=== PATIENT | female | born 2000 | race Caucasian/White ===

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

== ENCOUNTER 2019-06-23 10:36 | Emergency (ER) | payer SELFPAY ==
--- NOTE | 2019-06-23 11:28 | ER Document Report ---
ED Medical Screen (RME) - General Chief Complaint: Abdominal Pain Stated Complaint: ABDOMINAL PAIN Time Seen by Provider: 06/23/19 11:25 Primary Care Provider: [facility] [Provider Group] - Follow up as needed PATRICK VILLANUEVA MD [ACTIVE STAFF] - Follow up as needed Mode of Arrival: Ambulatory Information source: Patient Notes: 18-year-old female presented to ED for complaint of abdominal cramping. She states her last menstrual cycle was May 24May 29. States she had a home test that was positive and she would like to be checked out. She is alert oriented respirations regular nonlabored speaking in full sentences. He denies any nausea or vomiting. I have greeted and performed a rapid initial assessment of this patient. A comprehensive ED assessment and evaluation of the patient, analysis of test results and completion of medical decision making process will be conducted by an additional ED providers. TRAVEL OUTSIDE OF THE [place] IN LAST 30 DAYS: No - HPI Onset: Just prior to arrival Onset/Duration: Intermittent Quality of pain: Cramping Severity: None Pain Level: Denies Associated Symptoms: None Exacerbated by: Denies Relieved by: Denies Similar symptoms previously: No Recently seen / treated by doctor: No - Related Data Smoking: Quit greater than 1 year Frequency of alcohol use: None Drug Abuse: None Allergies/Adverse Reactions: Penicillins Allergy (Verified 06/23/19 11:25) Past Medical History - General Information source: Patient - Social History Cigarette use (# per day): No Chew tobacco use (# tins/day): No Frequency of alcohol use: None Drug Abuse: None Family history: Reviewed & Not Pertinent - Past Medical History Cardiac Medical History: Reports: None Pulmonary Medical History: Reports: None EENT Medical History: Reports: None Neurological Medical History: Reports: None Endocrine Medical History: Reports: None Renal/ Medical History: Reports: Hx Ovarian Cysts, Hx Pelvic Inflammatory Disease Malignancy Medical History: Reports: None GI Medical History: Reports: None Musculoskeltal Medical History: Reports None Skin Medical History: Reports None Psychiatric Medical History: Reports: Hx Anxiety, Hx Depression Traumatic Medical History: Reports: None Infectious Medical History: Reports: None Past Surgical History: Reports: Hx Adenoidectomy, Hx Tonsillectomy - adenoids - Immunizations Immunizations up to date: Yes Hx Diphtheria, Pertussis, Tetanus Vaccination: Yes - 03/25/2018 Review of Systems - Review of Systems Constitutional: No symptoms reported EENT: No symptoms reported Cardiovascular: No symptoms reported Respiratory: No symptoms reported Gastrointestinal: No symptoms reported Genitourinary: No symptoms reported Female Genitourinary: No symptoms reported Musculoskeletal: No symptoms reported Skin: No symptoms reported Hematologic/Lymphatic: No symptoms reported Neurological/Psychological: No symptoms reported -: Yes All other systems reviewed and negative Physical Exam - Vital signs Vitals: Temp Pulse Resp BP Pulse Ox 98.2 F 94 H 18 129/81 H 100 06/23/19 11:10 06/23/19 11:10 06/23/19 11:10 06/23/19 11:10 06/23/19 11:10 Interpretation: Normal - General General appearance: Appears well, Alert - HEENT Head: Normocephalic, Atraumatic Eyes: Normal Pupils: PERRL - Respiratory Respiratory status: No respiratory distress Chest status: Nontender Breath sounds: Normal Chest palpation: Normal - Cardiovascular Rhythm: Regular Heart sounds: Normal auscultation Murmur: No - Abdominal Inspection: Normal Distension: No distension Bowel sounds: Normal Tenderness: Nontender Organomegaly: No organomegaly - Back Back: Normal, Nontender - Extremities General upper extremity: Normal inspection, Nontender, Normal color, Normal ROM, Normal temperature General lower extremity: Normal inspection, Nontender, Normal color, Normal ROM, Normal temperature, Normal weight bearing. No: Rashel's sign - Neurological Neuro grossly intact: Yes Cognition: Normal Orientation: AAOx4 Nj Coma Scale Eye Opening: Spontaneous Nj Coma Scale Verbal: Oriented [place] Coma Scale Motor: Obeys Commands Wick[place]fe Coma Scale Total: 15 Speech: Normal Motor strength normal: LUE, RUE, LLE, RLE Sensory: Normal - Psychological Associated symptoms: Normal affect, Normal mood - Skin Skin Temperature: Warm Skin Moisture: Dry Skin Color: Normal Course - Vital Signs Vital signs: Temp Pulse Resp BP Pulse Ox 98.1 F 95 H 14 127/87 H 100 06/23/19 13:25 06/23/19 13:25 06/23/19 13:25 06/23/19 13:25 06/23/19 13:25 - Laboratory Laboratory results interpreted by me: 06/23/19 11:50 Beta HCG, Quant 228.95 H Doctor's Discharge - Discharge Clinical Impression: Qualifiers: Weeks of gestation: less than 8 weeks Qualified Code(s): Z3A.01 - Less than 8 weeks gestation of Condition: Stable Disposition: HOME, SELF-CARE Instructions: [facility] Additional Instructions: You are . care is best started as early in as possible. If you're unsure about continuing this , you should discuss this with your physician or with wares sorter at [facility]. You should take only medications approved by your physician. Acetaminophen can safely be taken for minor pains. As a rule, medication for chronic conditions such as asthma or seizures can safely be continued. You should discuss with the physician every medicine you take. Any regular exercise program can be continued. Talk to your physician, however, before engaging in competitive or demanding sports. Alcohol, smoking, and "street drugs" are dangerous to your baby. Cocaine is especially dangerous. Don't use any illicit drugs! Acetaminophen Acetaminophen may be taken for pain relief or fever control. It's much safer than aspirin, offering a wider range of "safe" dosages. It is safe during . Some brand names are Tylenol, Panadol, Datril, Anacin 3, Tempra, and Liquiprin. Acetaminophen can be repeated every four hours. The following are maximum recommended dosages: WEIGHT Dose Drops Elixir Chewab le(80mg) (LBS.) drprs=droppers tsp=teaspoon 6 40 mg .4 ml (1/2) 6-11 80 mg .8 ml (full) 1/2 tsp 1 tab 12-16 120 mg 1 1/2 drprs 3/4 tsp 1 1/2 tabs 17-23 160 mg 2 drprs 1 tsp 2 tabs 24-30 240 mg 3 drprs 1 1/2 tsp 3 tabs 30-35 320 mg 2 tsp 4 tabs 36-41 360 mg 2 1/4 tsp 4 1/2 tabs 42-47 400 mg 2 1/2 tsp 5 tabs 48-53 480 mg 3 tsp 6 tabs 54-59 520 mg 3 1/4 tsp 6 1/2 tabs 60-64 560 mg 3 1/2 tsp 7 tabs 65-70 600 mg 3 3/4 tsp 7 1/2 tabs 71-76 640 mg 4 tsp 8 tabs 77-82 720 mg 4 1/2 tsp 9 tabs 83-88 800 mg 5 tsp 10 tabs >89 pounds or adults 650 mg to 900 mg Acetaminophen can be repeated every four hours. Maximum daily dose not to exceed 4000 mg. These maximum recommended dosages are slightly higher than the dosages written on the product container, but these dosages are very safe and well below the toxic dosage for acetaminophen. FOLLOW-UP CARE: If you have been referred to a physician for follow-up care, call the physicians office for an appointment as you were instructed or within the next two days. If you experience worsening or a significant change in your symptoms, notify the physician immediately or return to the Emergency Department at any time for re-evaluation. Referrals: PATRICK VILLANUEVA MD [ACTIVE STAFF] - Follow up as needed [facility] [Provider Group] - Follow up as needed
[2019-06-23 13:32] VITALS: BP 127/87
== END 2019-06-23 13:25 | disposition home or self-care (01) ==
LOC: ER 10:36
DX: O26.891 Other specified pregnancy related conditions, first trimester (principal); R10.9 Unspecified abdominal pain; Z3A.01 Less than 8 weeks gestation of pregnancy
CPT/HCPCS: 36415; 84702; 99284

== ENCOUNTER → 2019-07-15 | Outpatient (CLI) | payer MEDICAID ==
--- NOTE | 2019-07-15 15:16 | RADIOLOGY REPORT (SQ) ---
EXAM DESCRIPTION: U/S [id number] TRNABD 1GES W/ODOP COMPLETED DATE/TIME: 07/15/2019 2:45 pm REASON FOR STUDY: ENCTR FOR SUPERVISION OF NORMAL FIRST , 1ST TRIMESTER (Z34.01) Z34.01 EN CNTR FOR SUPRVSN OF NORMAL FIRST PREG, FIRST TRIMES COMPARISON: None. TECHNIQUE: Transabdominal static and realtime grayscale images acquired of the pelvis. Additional se lected spectral and color Doppler images recorded. All images stored on PACs. bHCG: Unknown. CLINICAL DATES: 7 weeks 4 days. LIMITATIONS: None. FINDINGS: FETUS: Single Living intrauterine . ULTRASOUND EGA: 6 weeks 5 days. ULTRASOUND TOMASZ: 03/04/2020 EFW: Not applicable less than 20 weeks. CRL: Visualized. FHR: 153 beats per minute. SURVEY: Too early to assess. AMNIOTIC FLUID: Too early to assess. PLACENTA: Not yet developed due to early gestation. SUBCHORIONIC BLEED: No. SIZE OF BLEED: Not applicable. UTERUS: No masses. No anomalies. CERVICAL LENGTH: 2.2 cm. Closed. RIGHT ADNEXA: Normal ovary with normal vascular flow. No adnexal free fluid. No adnexal masses. LEFT ADNEXA: Normal ovary with normal vascular flow. No adnexal free fluid. No adnexal masses. FREE FLUID: None. OTHER: No other significant finding. IMPRESSION: LIVING INTRAUTERINE . EGA 6 WEEKS 5 DAYS. Trimester of : First trimester - 0 to 13 weeks. TECHNICAL DOCUMENTATION: JOB ID: [id number] 2010 [employer]- All Rights Reserved rev Reading location - IP/workstation name: [email or web address]
== END ==
LOC: RAD 13:43
PROVIDERS: ATTEND Nurse Practitioner Family
DX: Z34.01 Encounter for supervision of normal first pregnancy, first trimester (principal)
CPT/HCPCS: 76801

== ENCOUNTER 2019-07-18 00:35 | Emergency (ER) | payer MEDICAID ==
[2019-07-18] MEDS ORDERED: DEXTROSE 5%-LACTATED RINGERS 1,000 ML IV ONE ×2 (02:10→03:58)
[2019-07-18] MEDS ORDERED: METOCLOPRAMIDE HCL INJ/PF 10 MG/2 ML SDV IV ONE (02:11)
[2019-07-18 02:12] LABS: ABSOLUTE LYMPHOCYTES (AUTO) 3.4 10^3/uL (0.5-4.7); ABSOLUTE MONOCYTES (AUTO) 0.8 10^3/uL (0.1-1.4); ABSOLUTE NEUT (AUTO) 10.2 10^3/uL (1.7-8.2); BASOPHILS % (AUTO) 0.3 % (0-2); EOSINOPHILS % (AUTO) 0.1 % (0-6); HEMATOCRIT 38.9 % (36.0-47.0); HEMOGLOBIN 13.5 g/dL (12.0-15.5); LYMPHOCYTES % (AUTO) 23.5 % (13-45); MEAN CORPUSCULAR HEMOGLOBIN 31.2 pg (27.0-33.4); MEAN CORPUSCULAR HGB CONC 34.6 g/dL (32.0-36.0); MEAN CORPUSCULAR VOLUME 90 fl (80-97); MONOCYTES % (AUTO) 5.3 % (3-13); PLATELET COUNT 234 10^3/uL (150-450); RED BLOOD COUNT 4.32 10^6/uL (3.72-5.28); RED CELL DISTRIBUTION WIDTH 13.5 % (11.5-14.0); SEGMENTED NEUTROPHILS % (AUTO) 70.8 % (42-78); TOTAL CELLS COUNTED % (AUTO) 100 %; WHITE BLOOD COUNT 14.5 10^3/uL (4.0-10.5)
--- NOTE | 2019-07-18 02:31 | ER Document Report ---
ED General - General Chief Complaint: OB Problem (<20wks) Stated Complaint: VOMITING,NAUSEA Time Seen by Provider: 07/18/19 01:57 Primary Care Provider: HARINDER MCGOWAN ARNP [Primary Care Provider] - Follow up as needed TRAVEL OUTSIDE OF THE [place] IN LAST 30 DAYS: No - HPI Notes: 18-year-old primigravida at 7 weeks EGA experiencing problems with vomiting and difficulty keeping fluids down. No fever or chills. No dysuria. No back pain. Patient was given pyridoxine and Zofran by OB clinic and neither have worked well for her. Patient is otherwise in good general health. No regular medications. History of allergy to penicillin. - Related Data Allergies/Adverse Reactions: Penicillins Allergy (Verified 06/23/19 11:25) Home Medications: zofran, magnesium, Past Medical History - General Information source: Patient - Social History Smoking Status: Never Smoker Family History: Reviewed & Not Pertinent Patient has suicidal ideation: No Patient has homicidal ideation: No Renal/ Medical History: Reports: Hx Ovarian Cysts, Hx Pelvic Inflammatory Disease. Denies: Hx Peritoneal Dialysis Psychiatric Medical History: Reports: Hx Anxiety, Hx Depression Past Surgical History: Reports: Hx Adenoidectomy, Hx Tonsillectomy - adenoids - Immunizations Immunizations up to date: Yes Hx Diphtheria, Pertussis, Tetanus Vaccination: Yes - 03/25/2018 Review of Systems - Review of Systems Notes: Constitutional: Negative for fever. HENT: Negative for sore throat. Eyes: Negative for visual changes. Cardiovascular: Negative for chest pain. Respiratory: Negative for shortness of breath. Gastrointestinal: As per HPI. Genitourinary: Negative for dysuria. Musculoskeletal: Negative for back pain. Skin: Negative for rash. Neurological: Negative for headaches, weakness or numbness. 10 point ROS negative except as marked above and in HPI. Physical Exam - Vital signs Vitals: Temp Pulse Resp BP Pulse Ox 98.0 F 112 H 18 131/73 H 100 07/18/19 00:39 07/18/19 00:39 07/18/19 00:39 07/18/19 00:39 07/18/19 00:39 - Notes Notes: GENERAL: Slender female appearing approximately stated age in no acute distress. SKIN: Good turgor. Grade 2 facial acne. HEAD: Normocephalic atraumatic. EYES: PERRLA. EOMI. Conjunctivae and sclerae clear. EARS: CANALS AND TMS CLEAR. NOSE: CLEAR. MOUTH: Moist mucosa. Good dentition. No stridor or edema. No drooling. NECK: Supple. No masses or thyromegaly. No adenopathy. Carotids 2+ without bruits. No JVD. BACK: Symmetrical without tenderness. CHEST: Respirations unlabored. Breath sounds clear and symmetrical. HEART: Regular rhythm. No murmur gallop or rub. ABDOMEN: Mild suprapubic tenderness. Soft without masses, organomegaly or re bound. Bowel sounds normally active. No bruits. GENITALIA: Deferred. EXTREMITIES: No edema. No calf tenderness. Cap refill less than 1.5 seconds. Dorsalis pedis and posterior tibial pulses 3+ and symmetrical. NEUROLOGICAL: GCS 15. Alert and oriented x3. Normal gait. Fluent speech. Cranial nerves II through XII intact. Sensorimotor and cerebellar normal. Normal tone. PSYCHIATRIC: Appropriate affect. Course - Re-evaluation Re-evalutation: 07/18/19 02:15 Prior records reviewed showing ultrasound 3 days ago here which demonstrated IUP. Based on this study she would currently be at 7 weeks EGA. Routine labs are requested. I have initiated infusion of 1 L of D5LR and administration of Reglan IV. 07/18/19 05:09 Patient had large ketones in her urine. We are giving her second bag of D5 LR. She is tolerating p.o. fluids now appears stable for discharge with a prescription for Reglan follow-up with her OB. - Vital Signs Vital signs: Temp Pulse Resp BP Pulse Ox 98.0 F 112 H 18 131/73 H 100 07/18/19 00:39 07/18/19 00:39 07/18/19 00:39 07/18/19 00:39 07/18/19 00:39 - Laboratory Result Diagrams: 07/18/19 02:01 07/18/19 02:01 Discharge - Discharge Clinical Impression: Hyperemesis of Condition: Stable Disposition: HOME, SELF-CARE Prescriptions: Metoclopramide HCl [Reglan 10 mg Tablet] 1 tab PO ASDIR PRN #25 tablet PRN Reason: Referrals: HARINDER MCGOWAN ARNP [Primary Care Provider] - Follow up as needed
[2019-07-18 02:32] LABS: ALBUMIN 4.3 g/dL (3.7-5.6); ALKALINE PHOSPHATASE 59 U/L (50-135); ANION GAP 12 (5-19); ASPARTATE AMINO TRANSFERASE 20 U/L (5-30); BILIRUBIN,TOTAL 0.4 mg/dL (0.2-1.3); BLOOD UREA NITROGEN 9 mg/dL (7-20); CALCIUM 9.8 mg/dL (8.4-10.2); CARBON DIOXIDE 23 mmol/L (22-30); CHLORIDE 102 mmol/L (98-107); GLUCOSE 77 mg/dL (75-110); POTASSIUM 3.6 mmol/L (3.6-5.0)
[2019-07-18 02:36] LABS: APPEARANCE,URINE SLIGHTLY-CLOUDY; BILIRUBIN,URINE NEGATIVE (NEGATIVE); COLOR,URINE YELLOW; GLUCOSE, URINE NEGATIVE (NEGATIVE); KETONES,URINE 20 mg/dL (NEGATIVE); LEUKOCYTE ESTERASE,URINE NEGATIVE (NEGATIVE); NITRITE,URINE NEGATIVE (NEGATIVE); PROTEIN,URINE 30 mg/dL (NEGATIVE); URINE SPECIFIC GRAVITY 1.023; UROBILINOGEN,URINE NEGATIVE mg/dL (<2.0)
[2019-07-18 05:47] VITALS: BP 123/74
== END 2019-07-18 05:46 | disposition home or self-care (01) ==
LOC: ER 00:35
DX: O21.0 Mild hyperemesis gravidarum (principal); O26.891 Other specified pregnancy related conditions, first trimester; R82.4 Acetonuria; O99.711 Diseases of the skin and subcutaneous tissue complicating pregnancy, first trimester; L70.9 Acne, unspecified; Z88.0 Allergy status to penicillin; Z3A.01 Less than 8 weeks gestation of pregnancy
CPT/HCPCS: 99283; 96361; 96374; 36415; 84702; 83690; 85025; 80053; 81001; J2765; J7121

== ENCOUNTER 2019-08-07 21:17 | Emergency (ER) | payer MEDICAID ==
[2019-08-07] MEDS ORDERED: METOCLOPRAMIDE HCL INJ/PF 10 MG/2 ML SDV IV ONE (22:05)
[2019-08-07] MEDS ORDERED: NORMAL SALINE 1000 ML 1,000 ML IV ONE (22:05)
--- NOTE | 2019-08-07 22:07 | ER Document Report ---
ED Medical Screen (RME) - General Chief Complaint: Nausea/Vomiting Stated Complaint: POSSIBLY THROWING UP BLOOD/ Primary Care Provider: HARINDER MCGOWAN ARNP [Primary Care Provider] - Follow up as needed Notes: Patient is a 18-year-old female who is G1, P0, first trimester who presents for uncontrollable nausea and vomiting that began earlier this morning. She was seen here recently for hyperemesis gravidarum and sent home on Reglan. She states it was controlling her symptoms but today she cannot keep the medicine down. She states she is vomited approximately 8 times. Has no lower abdominal pain or vaginal bleeding. Was recently set up with an OB. I have treated and performed a rapid initial assessment of this patient. A comprehensive ED assessment and evaluation of the patient, analysis of test results and completion of medical decision making process will be conducted by additional ED providers. PHYSICAL EXAMINATION: GENERAL: Well-appearing, well-nourished and in no acute distress. A&Ox4. Answers questions appropriately. TRAVEL OUTSIDE OF THE [place] IN LAST 30 DAYS: No - Related Data Allergies/Adverse Reactions: Penicillins Allergy (Verified 08/07/19 21:54) Past Medical History - Social History Frequency of alcohol use: None Drug Abuse: None Family history: Reviewed & Not Pertinent Neurological Medical History: Reports: Hx Seizures Renal/ Medical History: Reports: Hx Ovarian Cysts, Hx Pelvic Inflammatory Disease. Denies: Hx Peritoneal Dialysis Psychiatric Medical History: Reports: Hx Anxiety, Hx Depression Past Surgical History: Reports: Hx Adenoidectomy, Hx Oral Surgery, Hx Tonsillectomy - adenoids - Immunizations Immunizations up to date: Yes Hx Diphtheria, Pertussis, Tetanus Vaccination: Yes - 03/25/2018 Physical Exam - Vital signs Vitals: Temp Pulse Resp BP Pulse Ox 97.3 F 89 20 120/68 100 08/07/19 21:22 08/07/19 21:22 08/07/19 21:22 08/07/19 21:22 08/07/19 21:22 Course - Vital Signs Vital signs: Temp Pulse Resp BP Pulse Ox 97.3 F 89 20 120/68 100 08/07/19 21:22 08/07/19 21:22 08/07/19 21:22 08/07/19 21:22 08/07/19 21:22 Doctor's Discharge - Discharge Referrals: HARINDER MCGOWAN ARNP [Primary Care Provider] - Follow up as needed
--- NOTE | 2019-08-07 23:49 | ER Document Report ---
ED General - General Chief Complaint: Nausea/Vomiting Stated Complaint: POSSIBLY THROWING UP BLOOD/ Time Seen by Provider: 08/07/19 23:46 Primary Care Provider: HARINDER MCGOWAN ARNP [NO LOCAL MD] - Follow up as needed Mode of Arrival: Ambulatory Information source: Patient, [facility] Records Notes: Patient is a 18-year-old female 1 para 0 A0 approximately 11 weeks presenting to the emergency department chief complaint of intractable nausea and vomiting. Patient denies sick exposures or any bad food exposure. Patient states she has been seen for same in the past. Patient reports multiple episodes of vomiting today most recently with a little bit of streaking of blood. TRAVEL OUTSIDE OF THE [place] IN LAST 30 DAYS: No - HPI Onset: Last week Onset/Duration: Intermittent, Worse Quality of pain: Achy Severity: Mild Pain Level: 1 Associated symptoms: Nausea, Vomiting Exacerbated by: Denies Relieved by: Denies Similar symptoms previously: Yes Recently seen / treated by doctor: No - Related Data Allergies/Adverse Reactions: Penicillins Allergy (Verified 08/07/19 21:54) Past Medical History - General Information source: Patient, [facility] Records - Social History Smoking Status: Former Smoker Cigarette use (# per day): No Chew tobacco use (# tins/day): No Smoking Education Provided: No Frequency of alcohol use: None Drug Abuse: None Lives with: Alone Family History: Reviewed & Not Pertinent Patient has suicidal ideation: No Patient has homicidal ideation: No Neurological Medical History: Reports: Hx Seizures Renal/ Medical History: Reports: Hx Ovarian Cysts, Hx Pelvic Inflammatory Disease. Denies: Hx Peritoneal Dialysis Psychiatric Medical History: Reports: Hx Anxiety, Hx Depression Past Surgical History: Reports: Hx Adenoidectomy, Hx Oral Surgery, Hx Tonsillectomy - adenoids - Immunizations Immunizations up to date: Yes Hx Diphtheria, Pertussis, Tetanus Vaccination: Yes - 03/25/2018 Review of Systems - Review of Systems Notes: REVIEW OF SYSTEMS: CONSTITUTIONAL : Denies fever, chills, or sweats. Denies recent illness. EENT: Denies eye, ear, throat, or mouth pain or symptoms. Denies nasal or sinus congestion. CARDIOVASCULAR: Denies chest pain. RESPIRATORY: Denies cough, cold, or chest congestion. Denies shortness of breath, difficulty breathing, or wheezing. GASTROINTESTINAL: Per HPI GENITOURINARY: Denies difficulty urinating, painful urination, burning, frequency, or blood in urine. MUSCULOSKELETAL: Denies neck or back pain or joint pain or swelling. SKIN: Denies rash or skin lesions. HEMATOLOGIC : Denies easy bruising or bleeding. NEUROLOGICAL: Denies altered mental status or loss of consciousness. Denies headache. Denies weakness or paralysis or loss of use of either side. Denies problems with gait or speech. Denies sensory or motor loss. PSYCHIATRIC: Denies suicidal or homicidal ideations 10 Systems are negative unless otherwise specified above Physical Exam - Vital signs Vitals: Temp Pulse Resp BP Pulse Ox 97.3 F 89 20 120/68 100 08/07/19 21:22 08/07/19 21:22 08/07/19 21:22 08/07/19 21:22 08/07/19 21:22 - Notes Notes: PHYSICAL EXAMINATION: GENERAL: Well-appearing, well-nourished and in no acute distress. HEAD: Atraumatic, normocephalic. EYES: Pupils equal round and reactive to light, extraocular movements intact, sclera anicteric, conjunctiva are normal. ENT: nares patent, oropharynx clear without exudates. Moist mucous membranes. NECK: Normal range of motion, supple without lymphadenopathy, no appreciable JVD LUNGS: Lungs clear to auscultation bilaterally and equal. No wheezes rales or rhonchi. HEART: Regular rate and rhythm without murmurs ABDOMEN: Soft, nontender, normal bowel sounds. No guarding, no rebound. No masses appreciated. I was unable to palpate the uterine fundus EXTREMITIES: Active full range of motion, no pitting or edema. No cyanosis. 2+ pulses x4 NEUROLOGICAL: No focal neurological deficits. Moves all extremities spontaneously and on command. SKIN: Warm, Dry, and intact. Normal turgor, no rashes or lesions noted. Course - Re-evaluation Re-evalutation: 08/08/19 02:25 On reevaluation the patient is resting comfortably in hospital bed. I discussed the laboratory and radiologic results with the patient there is no significant abnormal findings. Patient is agreeable with discharge home states that she will follow-up with her FINANCIAL SYSTEMS MANAGER provider in 2 weeks as scheduled. Patient is stable at time of discharge. - Vital Signs Vital signs: Temp Pulse Resp BP Pulse Ox 97.3 F 89 20 120/68 100 08/07/19 21:22 08/07/19 21:22 08/07/19 21:22 08/07/19 21:22 08/07/19 21:22 - Laboratory Result Diagrams: 08/07/19 23:54 08/07/19 23:54 Laboratory results interpreted by me: 08/07/19 08/07/19 08/07/19 23:54 23:54 23:54 WBC 16.2 H Hct 35.6 L Absolute Neuts (auto) 13.4 H Seg Neutrophils % 82.6 H Creatinine 0.34 L Beta HCG, Quant 62018.00 H Urine Protein 30 H Urine Ketones 80 H - Diagnostic Test Radiology reviewed: Reports reviewed Discharge - Discharge Clinical Impression: Hyperemesis gravidarum Condition: Stable Disposition: HOME, SELF-CARE Instructions: Vomiting ([facility]) Additional Instructions: Recommend resting drinking plenty of clear fluids over the next couple of days. Follow-up with your FINANCIAL SYSTEMS MANAGER as necessary. Return to the emergency department for worsening symptoms. Ultrasound demonstrates a single living intrauterine 10 weeks 6 days heart rate 168 bpm. Forms: Return to Work Referrals: HARINDER MCGOWAN ARNP [NO LOCAL MD] - Follow up as needed
[2019-08-08] MEDS ORDERED: ACETAMINOPHEN 325 MG TABLET PO ONE (00:19)
[2019-08-08 00:28] LABS: ABSOLUTE LYMPHOCYTES (AUTO) 2.2 10^3/uL (0.5-4.7); ABSOLUTE MONOCYTES (AUTO) 0.6 10^3/uL (0.1-1.4); ABSOLUTE NEUT (AUTO) 13.4 10^3/uL (1.7-8.2); BASOPHILS % (AUTO) 0.2 % (0-2); EOSINOPHILS % (AUTO) 0.1 % (0-6); HEMATOCRIT 35.6 % (36.0-47.0); HEMOGLOBIN 12.1 g/dL (12.0-15.5); LYMPHOCYTES % (AUTO) 13.5 % (13-45); MEAN CORPUSCULAR HEMOGLOBIN 30.7 pg (27.0-33.4); MEAN CORPUSCULAR VOLUME 90 fl (80-97); MONOCYTES % (AUTO) 3.6 % (3-13); PLATELET COUNT 231 10^3/uL (150-450); RED BLOOD COUNT 3.95 10^6/uL (3.72-5.28); SEGMENTED NEUTROPHILS % (AUTO) 82.6 % (42-78); TOTAL CELLS COUNTED % (AUTO) 100 %; WHITE BLOOD COUNT 16.2 10^3/uL (4.0-10.5)
[2019-08-08 00:30] LABS: APPEARANCE,URINE CLOUDY; BILIRUBIN,URINE NEGATIVE (NEGATIVE); COLOR,URINE YELLOW; GLUCOSE, URINE NEGATIVE (NEGATIVE); KETONES,URINE 80 mg/dL (NEGATIVE); LEUKOCYTE ESTERASE,URINE NEGATIVE (NEGATIVE); NITRITE,URINE NEGATIVE (NEGATIVE); PROTEIN,URINE 30 mg/dL (NEGATIVE); URINE SPECIFIC GRAVITY 1.019; UROBILINOGEN,URINE NEGATIVE mg/dL (<2.0)
[2019-08-08 00:53] LABS: ALBUMIN 4.4 g/dL (3.7-5.6); ALKALINE PHOSPHATASE 58 U/L (50-135); ANION GAP 11 (5-19); ASPARTATE AMINO TRANSFERASE 24 U/L (5-30); BILIRUBIN,TOTAL 0.4 mg/dL (0.2-1.3); BLOOD UREA NITROGEN 7 mg/dL (7-20); CALCIUM 9.8 mg/dL (8.4-10.2); CARBON DIOXIDE 22 mmol/L (22-30); CHLORIDE 105 mmol/L (98-107); GLUCOSE 78 mg/dL (75-110); TOTAL PROTEIN 7.1 g/dL (6.3-8.2)
--- NOTE | 2019-08-08 02:02 | RADIOLOGY REPORT (SQ) ---
EXAM DESCRIPTION: US LESS THAN 14 WEEKS COMPLETED DATE/TME: 08/07/2019 23:48 CLINICAL HISTORY: 18 years, Female, Hyperemesis gravidarum COMPARISON: 07/15/2019 TECHNIQUE: Transabdominal grayscale and Doppler sonogram of the pelvis LIMITATIONS: None. FINDINGS: Uterus: Anteverted. Measures 8.6 x 7.5 x 7.7 cm. Endometrium: Intrauterine gestational sac. Gestational sac: Shape is oval. Fetus: CRL measures 4.0 cm. Heart rate: 168 bpm. Other: Subchorionic hematoma: None. Amniotic fluid: Subjectively within normal limits. Maternal ovaries: Right: Not uniquely identified. Left: Not uniquely identified. Clinical: LMP: 05/24/2019. MA: 10 weeks six days. TOMASZ: 02/28/2020. Ultrasound: MA: 10 weeks six days. TOMASZ: 02/28/2020. IMPRESSION: Single live intrauterine , as described above. copyright 2010 [employer]- All Rights Reserved
[2019-08-08 02:31] VITALS: BP 121/67
== END 2019-08-08 02:31 | disposition home or self-care (01) ==
LOC: ER 21:17
DX: O21.0 Mild hyperemesis gravidarum (principal); Z3A.11 11 weeks gestation of pregnancy; Z87.891 Personal history of nicotine dependence
CPT/HCPCS: 99284; 96361; 96374; 36415; 84702; 83690; 85025; 80053; 81001; 76801; 93976; J3490; J2765; J7030

== ENCOUNTER 2019-08-08 19:06 | Emergency (ER) | payer MEDICAID ==
--- NOTE | 2019-08-08 19:26 | ER Document Report ---
ED Medical Screen (RME) - General Stated Complaint: VAGINAL DISCOMFORT AND PAIN Time Seen by Provider: 08/08/19 19:24 Primary Care Provider: PATRICK VILLANUEVA MD [Primary Care Provider] - Follow up as needed TRAVEL OUTSIDE OF THE [place] IN LAST 30 DAYS: No - HPI Onset: Just prior to arrival Onset/Duration: Gradual - This is a 18-year-old female presents to the emergency room today stating that she has a bump on her vaginal area which is increased in severity over the last week to the point where now she cannot walk and she passed out earlier today from the pain., Persistent Quality of pain: No pain Severity: Moderate Associated Symptoms: None Exacerbated by: Denies Relieved by: Denies - Related Data Allergies/Adverse Reactions: Penicillins Allergy (Verified 08/07/19 21:54) Past Medical History - General Information source: Patient - Social History Cigarette use (# per day): No Chew tobacco use (# tins/day): No Frequency of alcohol use: None Drug Abuse: None Lives with: Family Family history: Reviewed & Not Pertinent Neurological Medical History: Reports: Hx Seizures Renal/ Medical History: Reports: Hx Ovarian Cysts, Hx Pelvic Inflammatory Disease. Denies: Hx Peritoneal Dialysis Psychiatric Medical History: Reports: Hx Anxiety, Hx Depression Past Surgical History: Reports: Hx Adenoidectomy, Hx Oral Surgery, Hx Tonsillectomy - adenoids - Immunizations Immunizations up to date: Yes Hx Diphtheria, Pertussis, Tetanus Vaccination: Yes - 03/25/2018 Review of Systems - Review of Systems Constitutional: No symptoms reported EENT: No symptoms reported Physical Exam - General General appearance: Appears well, Alert Doctor's Discharge - Discharge Referrals: PATRICK VILLANUEVA MD [Primary Care Provider] - Follow up as needed
[2019-08-08] MEDS ORDERED: LIDOCAINE 1%/EPINEPHRINE INJ 20 ML VIAL INJ ONE (22:29)
[2019-08-08] MEDS ORDERED: ACETAMINOPHEN 325 MG TABLET PO ONE (22:49)
[2019-08-08] MEDS ORDERED: CLINDAMYCIN HCL 150 MG CAPSULE PO ONE (22:49)
--- NOTE | 2019-08-08 22:53 | ER Document Report ---
ED Skin Rash/Insect Bite/Abscs - General Chief Complaint: Abscess Stated Complaint: VAGINAL DISCOMFORT AND PAIN Time Seen by Provider: 08/08/19 19:24 Primary Care Provider: [facility] [Provider Group] - Follow up in 3-5 days Notes: She is a 18-year-old female who presents emergency department with a chief complaint of a possible abscess to her left labia majora. Patient states that she has had it there for the past few days. She denies any fever, body aches or chills. Patient was seen yesterday, but decided not to have the abscess drained. Patient does have a history of MRSA. Patient states that she is 11 weeks . She attempted to place heat packs to her inner thigh and ended up sustaining a superficial burn to her left inner thigh. Patient admits to shaving her genital area. TRAVEL OUTSIDE OF THE [place] IN LAST 30 DAYS: No - Related Data Allergies/Adverse Reactions: Penicillins Allergy (Verified 08/07/19 21:54) Home Medications: reglan Past Medical History - General Information source: Patient - Social History Smoking Status: Former Smoker Cigarette use (# per day): No Chew tobacco use (# tins/day): No Frequency of alcohol use: None Drug Abuse: None Lives with: Family Family History: Reviewed & Not Pertinent Patient has suicidal ideation: No Patient has homicidal ideation: No Neurological Medical History: Reports: Hx Seizures Renal/ Medical History: Reports: Hx Ovarian Cysts, Hx Pelvic Inflammatory Disease. Denies: Hx Peritoneal Dialysis Psychiatric Medical History: Reports: Hx Anxiety, Hx Depression Past Surgical History: Reports: Hx Adenoidectomy, Hx Oral Surgery, Hx Tonsillectomy - adenoids - Immunizations Immunizations up to date: Yes Hx Diphtheria, Pertussis, Tetanus Vaccination: Yes - 03/25/2018 Review of Systems - Review of Systems Notes: REVIEW OF SYSTEMS: CONSTITUTIONAL : Denies recent illness. Denies recent unintentional weight loss. Denies fever, chills, or sweats. EENT: Denies eye, ear, throat, or mouth pain, discharge, or symptoms. Denies nasal or sinus congestion. CARDIOVASCULAR: Denies chest pain. RESPIRATORY: Denies shortness of breath, cough, congestion, difficulty breathing, or wheezing. GASTROINTESTINAL: Denies nausea, vomiting, and diarrhea. Denies abdominal pain. Denies constipation. GENITOURINARY: Denies difficulty urinating, burning, blood in urine, urgency or frequency. MUSCULOSKELETAL: Denies neck and back pain. Denies joint pain or swelling. SKIN/GENITALIA: Denies rash, itchiness. See HPI. HEMATOLOGIC : Denies easy bruising or bleeding. LYMPHATIC: Denies swollen, painful, enlarged glands. NEUROLOGICAL: Denies no numbness or tingling denies weakness. Denies headache. Denies altered mental status. Denies alteration in speech. PSYCHIATRIC: Denies stress, anxiety, alteration in sleep patterns, or depression. All other systems reviewed and negative. Physical Exam - Vital signs Vitals: Temp Pulse Resp BP Pulse Ox 98.0 F 98 H 20 111/61 100 08/08/19 19:21 08/08/19 19:21 08/08/19 19:21 08/08/19 19:21 08/08/19 19:21 - Notes Notes: PHYSICAL EXAMINATION: GENERAL: Appears well, healthy, well-nourished, no acute distress. HEAD: Normocephalic, atraumatic. EYES: PERRL, conjunctiva normal, all extraocular movements intact, sclera nonicteric ENT: Moist mucous membranes. NECK: Supple, no noticeable swelling, redness, rash. Normal range of motion. LUNGS: Equal breath sounds bilaterally and clear to auscultation. No wheezes rales or rhonchi. CARDIOVASCULAR: S1-S2, regular rate, regular rhythm. Radial pulses 2+, normal. ABDOMEN: Normoactive bowel sounds. Soft, nontender, no guarding, no rebound tenderness, and no masses palpated. EXTREMITIES: Normal strength and range of motion, no pitting or edema. No cyanosis. NEUROLOGICAL: Moves all extremities upon command. Strength 5/5 in all extremities. PSYCH: Normal mood, normal affect. SKIN: Warm, dry. No rash, lesions, ulcerations noted. Normal skin turgor. Very small 1st degree burn noted to left inner thigh. GENITALIA: Abcess noted to Left Labia Majora. Course - Re-evaluation Re-evalutation: 08/08/19 22:52 Differential diagnosis includes but normal limited to: abscess, dermoid cyst, sebaceous cyst, furnucle, or others. Based on patient's physical exam and history, this is an abscess. It was drained in the ER. There is some surrounding cellulitis. I do not believe the patient has underlying necrotizing fasciitis. Patient has history of MRSA. Based on patient's physical exam and these factors, they will be treated with antibiotics. Packing was placed. She will follow-up in the emergency department in 2 days. See procedure note. Follow-up precautions were given. Verbal discharge instructions were given to the patient. They verbalized understanding. They are stable for discharge. - Vital Signs Vital signs: Temp Pulse Resp BP Pulse Ox 98.5 F 88 18 103/62 99 08/08/19 23:20 08/08/19 23:20 08/08/19 23:20 08/08/19 23:20 08/08/19 23:20 Procedures - Incision and Drainage Left Lateral Labia Type: Simple, Multiple Anesthetic type: 1% Lidocaine w/epi mL's of anesthetic: 10 Blade size: 11 I&D procedure: Iodoform packing placed, Sterile dressing applied Incision Method: Incision made by scalpel Amount/type of drainage: 10 mls/purulent and blood Discharge - Discharge Clinical Impression: Labial abscess, Burn Condition: Stable Disposition: HOME, SELF-CARE Instructions: Abscess ([facility]), Post Incision and Drainage Additional Instructions: You were seen for an abscess that required drainage. Packing was placed to the area. Try to rest keep the area clean and dry. You can wear pads to help keep your underwear clean. Take your antibiotics as prescribed please return if you develop fever, vomiting, the pain at the site worsens, you notice spreading redness from the area, or you have any other symptoms that are concerning to you. Return to the emergency department, your primary care provider, or urgent care to have the packing removed. If the packing comes out on its own, clean the area well and let it be. You can apply Silvadene cream twice a day to your inner thigh burn. Prescriptions: Clindamycin HCl [Cleocin 150 mg Capsule] 300 mg PO Q6 7 Days #56 capsule Referrals: [facility] [Provider Group] - Follow up in 3-5 days
[2019-08-08] MEDS ORDERED: SILVER SULFADIAZINE 1% CREAM 50 GM TP ONE (22:54)
[2019-08-08] MEDS ORDERED: SILVER SULFADIAZINE 1% CREAM 25 GM ONE (23:07)
[2019-08-08 23:22] VITALS: BP 103/62
== END 2019-08-08 23:20 | disposition home or self-care (01) ==
LOC: ER 19:06
DX: O23.591 Infection of other part of genital tract in pregnancy, first trimester (principal); O9A.211 Injury, poisoning and certain other consequences of external causes complicating pregnancy, first trimester; T24.112A Burn of first degree of left thigh, initial encounter; X19.XXXA Contact with other heat and hot substances, initial encounter; Y99.8 Other external cause status; Z3A.11 11 weeks gestation of pregnancy; Z79.899 Other long term (current) drug therapy; Z87.891 Personal history of nicotine dependence; Z88.0 Allergy status to penicillin
CPT/HCPCS: 99283; 87070; 87205; 87075; 87077; 56405; J3490 ×4

== ENCOUNTER 2019-11-05 16:02 | Emergency (ER) | payer MEDICAID ==
[2019-11-05 16:44] VITALS: BP 124/66
== END 2019-11-05 17:30 | disposition left against medical advice (07) ==
LOC: ER 16:02
DX: Z53.21 Procedure and treatment not carried out due to patient leaving prior to being seen by health care provider (principal)

== ENCOUNTER 2020-02-18 10:51 | Outpatient (CLI) | payer MEDICAID ==
[2020-02-18 11:32] LABS: APPEARANCE,URINE CLEAR; BILIRUBIN,URINE NEGATIVE (NEGATIVE); COLOR,URINE STRAW; GLUCOSE, URINE NEGATIVE (NEGATIVE); KETONES,URINE NEGATIVE (NEGATIVE); LEUKOCYTE ESTERASE,URINE NEGATIVE (NEGATIVE); NITRITE,URINE NEGATIVE (NEGATIVE); PROTEIN,URINE NEGATIVE (NEGATIVE); URINE SPECIFIC GRAVITY 1.005; UROBILINOGEN,URINE NEGATIVE mg/dL (<2.0)
[2020-02-18 11:57] LABS: URINE AMPHETAMINES SCREEN NEGATIVE; URINE BARBITURATES SCREEN NEGATIVE; URINE BENZODIAZEPINES SCREEN NEGATIVE; URINE COCAINE SCREEN NEGATIVE; URINE METHADONE SCREEN NEGATIVE; URINE PHENCYCLIDINE SCREEN NEGATIVE
[2020-02-18 12:08] LABS: URINE MARIJUANA (THC) SCREEN UNCONFIRMED POSITIVE
--- NOTE | 2020-02-18 12:23 | Non Stress Test Report ---
Non Stress Test Datetime Report Generated by CPN: 02/18/2020 12:22 DEMOGRAPHIC Test Number: 1 EGA NST: 38.4 INDICATION Indication for Study (NST) Other: IUP 38.4, Provider Order VITAL SIGNS Temperature - NST: 98.3 Pulse - NST: 67 RESP - NST: 18 NBPSYS NST: 109 NBPDIA NST: 68 MONITORING Monitor Explained: Monitor Explained; Test Explained; Patient Verbalized Understanding Time on Monitor: 02/18/2020 11:11 Time off Monitor: 02/18/2020 11:33 NST Duration: 22 NST INTERVENTIONS NST Interventions: PO Hydration Physician Notified NST: P Hillman CNM BABY A: [id number] BABY A Movement : Present Contraction Frequency : Irregular FHR Baseline : 125 Accelerations : 15X15 Decelerations : None Variability : Moderate 6-25bpm NST Review: Meets Criteria for Reactive NST NST Review and Verified By : SAutry NST Results: Reactive NST REPORT Report Trigger: Send Report
[2020-02-19] MEDS ORDERED: HYDROXYZINE PAMOATE 50 MG CAPSULE PO ONE (00:22)
== END 2020-02-18 12:29 | disposition home or self-care (01) ==
LOC: LC 10:51
PROVIDERS: ATTEND Obstetrics & Gynecology
DX: O47.1 False labor at or after 37 completed weeks of gestation (principal); Z3A.38 38 weeks gestation of pregnancy; Z88.0 Allergy status to penicillin
CPT/HCPCS: 59025; 81005; 80307; G0480 ×2; 80349

== ENCOUNTER 2020-02-18 21:54 | Outpatient (CLI) | payer MEDICAID ==
[2020-02-18 22:42] LABS: APPEARANCE,URINE CLEAR; BILIRUBIN,URINE NEGATIVE (NEGATIVE); COLOR,URINE STRAW; GLUCOSE, URINE NEGATIVE (NEGATIVE); KETONES,URINE NEGATIVE (NEGATIVE); LEUKOCYTE ESTERASE,URINE NEGATIVE (NEGATIVE); NITRITE,URINE NEGATIVE (NEGATIVE); PROTEIN,URINE NEGATIVE (NEGATIVE); URINE SPECIFIC GRAVITY 1.009; UROBILINOGEN,URINE NEGATIVE mg/dL (<2.0)
[2020-02-18 23:02] LABS: URINE AMPHETAMINES SCREEN NEGATIVE; URINE BARBITURATES SCREEN NEGATIVE; URINE BENZODIAZEPINES SCREEN NEGATIVE; URINE COCAINE SCREEN NEGATIVE; URINE METHADONE SCREEN NEGATIVE; URINE PHENCYCLIDINE SCREEN NEGATIVE
[2020-02-18 23:10] LABS: URINE MARIJUANA (THC) SCREEN UNCONFIRMED POSITIVE
[2020-02-19] MEDS ORDERED: HYDROXYZINE PAMOATE 50 MG CAPSULE ONE (00:27)
--- NOTE | 2020-02-19 00:50 | Non Stress Test Report ---
Non Stress Test Datetime Report Generated by CPN: 02/19/2020 00:50 DEMOGRAPHIC EGA NST: 38.5 INDICATION Indication for Study (NST) Other: labor check MONITORING Monitor Explained: Monitor Explained; Test Explained; Patient Verbalized Understanding Time on Monitor: 02/19/2020 22:15 Time off Monitor: 02/19/2020 22:50 NST Duration: 35 NST INTERVENTIONS NST Interventions: None Physician Notified NST: Dr. Mcallister BABY A: [id number] BABY A Movement : Present Contraction Frequency : irregular FHR Baseline : 145 Accelerations : 15X15 Decelerations : None Variability : Moderate 6-25bpm NST Review: Meets Criteria for Reactive NST NST Review and Verified By : D Bellavance RN NST Results: Reactive NST REPORT Report Trigger: Send Report
== END 2020-02-19 00:42 | disposition home or self-care (01) ==
LOC: LC 21:54
PROVIDERS: ATTEND Obstetrics & Gynecology
DX: O47.1 False labor at or after 37 completed weeks of gestation (principal); Z3A.38 38 weeks gestation of pregnancy; Z88.0 Allergy status to penicillin
CPT/HCPCS: 59025; 81005; 80307; J3490

== ENCOUNTER 2020-02-19 03:41 | Inpatient (IN) | payer MEDICAID ==
[2020-02-19] MEDS ORDERED: OXYTOCIN/0.9 % SODIUM CHLORIDE 30 UNIT/500 ML RTUINJ ONE (03:48)
[2020-02-19] MEDS ORDERED: LIDOCAINE 1% INJ-PF (10 MG/ML) 30 ML SDV ONE (03:48)
[2020-02-19] MEDS ORDERED: MISOPROSTOL 0.2 MG TABLET ONE (03:48)
[2020-02-19] MEDS ORDERED: OXYTOCIN 10 UNIT/ML VIAL ONE (03:48)
[2020-02-19] MEDS ORDERED: ACETAMINOPHEN WITH CODEINE #3 TABLET ONE (04:01)
[2020-02-19] MEDS ORDERED: ACETAMINOPHEN WITH CODEINE #3 TABLET PO ONE (04:04)
[2020-02-19] MEDS ORDERED: PROMETHAZINE HCL INJ 25 MG/1 ML VIAL IV PRN (04:13)
[2020-02-19] MEDS ORDERED: DIPHENHYDRAMINE HCL 25 MG CAPSULE PO PRN (04:13)
[2020-02-19] MEDS ORDERED: DIBUCAINE 1% OINTMENT 28 GM TP PRN (04:13)
[2020-02-19] MEDS ORDERED: OXYTOCIN/0.9 % SODIUM CHLORIDE 30 UNIT/500 ML RTUINJ IV PRN (04:13)
[2020-02-19] MEDS ORDERED: ZOLPIDEM TARTRATE 5 MG TABLET PO PRN (04:13)
[2020-02-19] MEDS ORDERED: MEASLES,MUMPS&RUBELLA VACC/PF 0.5 ML VIAL SUBCUT PRN (04:13)
[2020-02-19] MEDS ORDERED: ACETAMINOPHEN WITH CODEINE #3 TABLET PO PRN ×2 (04:13)
[2020-02-19] MEDS ORDERED: PROMETHAZINE HCL 25 MG SUPP.RECT PR PRN (04:13)
[2020-02-19] MEDS ORDERED: DIPH/PERTUSS(ACELL)/TETANUS VAC/PF 0.5 ML SYR (>=10YO) IM PRN (04:13)
[2020-02-19] MEDS ORDERED: PROMETHAZINE HCL 25 MG TABLET PO PRN (04:13)
[2020-02-19] MEDS ORDERED: MAGNESIUM HYDROXIDE SUSP 30 ML UDCUP PO PRN (04:13)
[2020-02-19] MEDS ORDERED: NA PHOS,M-B/NA PHOS,DI-BA (ADULT) 133 ML ENEMA PR PRN (04:13)
[2020-02-19] MEDS ORDERED: PSEUDOEPHEDRINE HCL 30 MG TABLET PO PRN (04:13)
[2020-02-19] MEDS ORDERED: GLYCERIN/WITCH HAZEL LEAF 1 EACH MED..WIPE TP PRN (04:13)
[2020-02-19] MEDS ORDERED: ACETAMINOPHEN 650 MG SUPP.RECT PR PRN (04:13)
[2020-02-19] MEDS ORDERED: ONDANSETRON HCL INJ/PF 4 MG/2 ML SDV ONE (04:21)
[2020-02-19] MEDS ORDERED: ONDANSETRON HCL INJ/PF 4 MG/2 ML SDV IV ONE (04:22)
--- NOTE | 2020-02-19 05:15 | Admission Physical ---
Datetime Report Generated by CPN: 02/19/2020 05:14 CURRENT ADMISSION Chief Complaint: Other Chief Complaint Other: Patient delivered at home and came by EMS to hospital. Placenta already delivered prior to arrival. Admit Plan: Admit to Unit; Initiate Labor Protocol ALLERGIES Medication Allergies: Penicillins (02/18/2020) OBSTETRICAL HISTORY EDC: 02/28/2020 00:00 : 1 Para: 0 Term: 0 : 0 SAB: 0 IAB: 0 Livin PHYSICAL EXAM General: Normal HEENT: Deferred Neurologic: Normal Thyroid: Normal Heart: Normal Lungs: Normal Breast: Deferred Back: Normal Abdomen: Normal Genitourinary Exam: Normal Extremities: Normal DTRs: Normal Pelvic Type: Adequate FETUS A EGA: 38.5 Admit Comment: G1 at 38.5 wks EGCarmela who came by EMS after her water broke at home, contractions and delivered prior to arrival to the hospital. Her mother helped EMS deliver the baby and placenta She reports no issues. After her water broke she said contractions became intense and she pushed for 4 contractions, delivering her infant. On inspection here, she had bilateral labial lacerations. The laceration on the right was oozing and stitches placed with 3-0 chromic. Hemostasis obtained. Both MOther and infant stable. PLANS FOR LABOR AND DELIVERY Feeding Preference: Breast INFORMED CONSENT Informed Consent Obtained: Vaginal Delivery Signature: with User ID: Dayo : with User ID: Dayo
[2020-02-19 05:33] LABS: HEMATOCRIT 31.9 % (36.0-47.0); MEAN CORPUSCULAR HEMOGLOBIN 31.4 pg (27.0-33.4); MEAN CORPUSCULAR HGB CONC 34.6 g/dL (32.0-36.0); MEAN CORPUSCULAR VOLUME 91 fl (80-97); PLATELET COUNT 205 10^3/uL (150-450); RED CELL DISTRIBUTION WIDTH 13.5 % (11.5-14.0); WHITE BLOOD COUNT 21.7 10^3/uL (4.0-10.5)
[2020-02-19] MEDS ORDERED: IBUPROFEN 800 MG TABLET ONE (05:57)
[2020-02-19 06:02] LABS: ABSOLUTE LYMPHOCYTES# (MANUAL) 2.2 10^3/uL (0.5-4.7); ABSOLUTE MONOCYTES # (MANUAL) 0.7 10^3/uL (0.1-1.4); BASOPHILS % (MANUAL) 0 % (0-2); EOSINOPHILS % (MANUAL) 0 % (0-6); LYMPHOCYTES % (MANUAL) 10 % (13-45); MONOCYTES % (MANUAL) 3 % (3-13); PLATELET COMMENT ADEQUATE; RBC MORPHOLOGY COMMENT NORMO-CYTIC/CHROMIC; SEGMENTED NEUTROPHILS % (MAN) 87 % (42-78); TOTAL CELLS COUNTED 100
[2020-02-19 06:17] LABS: APPEARANCE,URINE CLEAR; BILIRUBIN,URINE NEGATIVE (NEGATIVE); COLOR,URINE YELLOW; GLUCOSE, URINE NEGATIVE (NEGATIVE); KETONES,URINE NEGATIVE (NEGATIVE); LEUKOCYTE ESTERASE,URINE TRACE (NEGATIVE); NITRITE,URINE NEGATIVE (NEGATIVE); PROTEIN,URINE 30 mg/dL (NEGATIVE); URINE SPECIFIC GRAVITY 1.005; UROBILINOGEN,URINE NEGATIVE mg/dL (<2.0)
--- NOTE | 2020-02-19 06:18 | Birth Certificate Data ---
Cert Data Datetime Report Generated by CPN: 02/19/2020 06:18 CERTIFICATE DATA 47a. Care: Yes (02/18/2020 11:04:Jenn Amin RN) 48a. Number of Prev Live Births: 0 (02/18/2020 11:04:Jenn Amin RN) 48b. Now Livin (02/18/2020 11:04:Etta Crawford RN) 48c. Live Births Now : 0 (02/18/2020 11:04: system process) 48e. Losses: 0 (02/18/2020 11:04:Jenn Amin RN) RISK FACTORS IN THIS 49a. Diabetes: No (02/18/2020 11:04:Jenn Amin RN) 49b. Hypertension: No (02/18/2020 11:04:Jenn Amin RN) 49c. Previous Births: 0 (02/18/2020 11:04:Etta Crawford RN) 49d. Stillborns: No (02/18/2020 11:04:Jenn Amin RN) 49d. IUGR: No (02/18/2020 11:04:Jenn Amin RN) 49e. Infertility Treatment: No (02/18/2020 11:04:Jenn Amin RN) 49f. Previous Cesareans: 0 (02/18/2020 11:04:Jenn Amin RN) Mother's Height 50b. Height Inches: 66 (02/18/2020 22:11:QS system process) Mother's Weight 51b. Weight at Delivery (lbs): 147 (02/18/2020 22:11:QS system process) Infections Present/Treated 53a. Gonorrhea: No (02/18/2020 11:04:Jenn Amin RN) Results this Hospital Visit : Negative (02/18/2020 11:04:Amanda Butt RN) 53b. Syphilis: No (02/18/2020 11:04:Jenn Amin RN) 53c. Chlamydia: No (02/18/2020 11:04:Jenn Amin RN) Results this Hospital Visit: Negative (02/18/2020 11:04:Amanda Butt RN) 53d. Hepatitis B: No (02/18/2020 11:04:Jenn Amin RN) Results this Hospital Visit: Negative (02/18/2020 11:04:Amanda Butt RN) 53e. Hepatitis C: Negative (02/18/2020 11:04:Amanda uBtt RN) 53h. Mother Tested for HBsAG: Yes (02/18/2020 11:04:Amanda Butt RN) 53i. Date Tested: 07/29/2019 00:00 (02/18/2020 11:04:Amanda Butt RN) 53j. Test Result: Negative (02/18/2020 11:04:Amanda Butt RN) Cigarette Smoking Cigarette Smoking: Never Smoker. [id number] (02/18/2020 11:04:Jenn Amin RN) 55a. 3 Months Before Preg - Ci (02/18/2020 11:04:Jenn Amin RN) 55a. Packs: 0 (02/18/2020 11:04:Jenn Amin RN) 55b. 1st Trimester of Preg- Ci (02/18/2020 11:04:Jenn Amin RN) 55b. Packs: 0 (02/18/2020 11:04:Jenn Amin RN) 55c. 2nd Trimester of Preg- Ci (02/18/2020 11:04:Jenn Amin RN) 55c. Packs: 0 (02/18/2020 11:04:Jenn Amin RN) 55d. 3rd Trimester of Preg- Ci (02/18/2020 11:04:Jenn Amin RN) 55d. Packs: 0 (02/18/2020 11:04:Jenn Amin RN) Onset of Labor 56b. Precipitous Labor <3 Hrs: 1 (02/18/2020 11:04:QS system process) 56c. Prolonged Labor > 20 Hrs: 1 (02/18/2020 11:04:QS system process) 57a. Induction of Labor: N/A (02/18/2020 11:04:Jenn Amin RN) 57c. Non-Vertex Presentation A: Vertex (02/18/2020 11:04:Amanda Butt RN) 57d. Steroids - Lung Mat: None (02/18/2020 11:04:Jenn Amin RN) 57d. Steroids - Lung Mat: Not Applicable (02/18/2020 11:04:Jenn Amin RN) 57f. Mat [place] or Temp >100.4: 98.6 (02/18/2020 11:04:Jenn Amin RN) 57h. Intolerance of Labor: N/A (02/18/2020 11:04:Jenn Amin RN) : N/A (02/18/2020 11:04:Jenn Amin RN) 57i. Epidural/Spinal Anesthesia: None (02/18/2020 11:04:Jenn Amin RN) Method of Delivery 58a. Forceps - Unsuccessful A: N/A (02/18/2020 11:04:Amanda Butt RN) 58b. Vacuum - Unsuccessful A: N/A (02/18/2020 11:04:Amanda Butt RN) 58c. Presentation at 58c. Presentation at - A : Vertex (02/18/2020 11:04:Amanda Butt RN) 58c. Presentation at - A : N/A (02/18/2020 11:04:Amanda Butt RN) 58c. Presentation at - A : Cephalic (02/18/2020 22:21:Selin Villar RN) Final Route and Method of Del 58d. Baby A Route/Delivery: Vaginal (02/18/2020 11:04:Amanda Butt RN) 58e. Trial of Labor Attempted: No (02/18/2020 11:04:Jenn Amin RN) 58e. Trial of Labor Attempted A: N/A (02/18/2020 11:04:Amanda Butt RN) Maternal Morbidity 59b. 3rd or 4th Degree Lacs: Perineal (02/18/2020 11:04:Jenn Amin RN) Birthweight Baby A: 2588 (02/18/2020 11:04:Jenn Amin RN) 60a. Pounds : 5 (02/18/2020 11:04:QS system process) 60b. Ounces: 11 (02/18/2020 11:04:QS system process) 61. GA at Delivery Baby A: 38.5 (02/18/2020 11:04:Amanda Butt RN) : Early Term- 37- 38.6 Weeks (02/18/2020 11:04:QS system process) 62a. 5 Minute Baby A: 8 (02/18/2020 11:04:QS system process)
--- NOTE | 2020-02-19 06:18 | Delivery Summary ---
Del Sum A-C Datetime Report Generated by CPN: 02/19/2020 06:18 DELIVERY PERSONNEL DELIVERY PERSONNEL: [id number] Delivery Doctor:: Brandi Mcallister MD Labor and Delivery Nurse:: Jenn Amin RN MATERNAL INFORMATION Delivery Anesthesia: None Medications After Delivery: Pitocin 30 Units in 500ml NS/D5W Maternal Complications: Precipitous Labor (<3hrs) Complication Details: Delivered at home Provider Comments: Called to patients room as she had arrived via EMS after at home. Placenta had delivered by EMS. Right labia with lacertion first degree but oozing. Stitched with 3-0 chormic in running fashion. Both mother and infant stable. Fundus firm. LABOR SUMMARY EDC: 02/28/2020 00:00 No. Babies in Womb: 1 Attempted: No Labor Anesthesia: None LABOR INFORMATION Reason for Induction: Not Applicable Onset of Labor: 02/19/2020 02:00 Oxytocin: N/A Group B Beta Strep: Negative Antibiotics # of Doses: N/A Steroids Given: None Reason Steroids Not Administered: Not Applicable MEMBRANES Membranes Rupture Method: Spontaneous STAGES OF LABOR Stage 3 hr: 0 Stage 3 min: 23 Total Time in Labor hr: 1 Total Time in Labor min: 10 VAGINAL DELIVERY Episiotomy: None Laceration #1: Perineal Laceration Extension #1: First Degree Laceration Repair: Yes Laceration Repair Note: Repair of right labial laceration iwth 3-0 chromic in a running fashion Sponge Count Correct: Yes Sharps Count Correct: Yes CSECTION DELIVERY Primary Indication: N/A Secondary Indication: N/A CSection Incidence: N/A Labor: N/A Elective: N/A CSection Incision: N/A BABY A INFORMATION Infant Delivery Date/Time: 02/19/2020 02:47 Method of Delivery: Vaginal Nurse Controlled Delivery: No Born in Route : Yes : N/A Forceps: N/A Vacuum Extraction: N/A Shoulder Dystocia : No PRESENTATION/POSITION BABY A Presentation: Cephalic Cephalic Presentation: Vertex Breech Presentation: N/A PLACENTA INFORMATION BABY A Placenta Delivery Time : 02/19/2020 03:10 Placenta Method of Delivery: Spontaneous Placenta Status: Delivered SCORES BABY A Heart Rate 1 min: >100 bpm Resp Effort 1 min: Good Cry Reflex Irritability 1 min: Cough or Sneeze or Pulls Away Muscle Tone 1 min: Some Flexion of Extremities Color 1 min: Blue/Pale SCORE 1 MIN: 7 Heart Rate 5 min: >100 bpm Resp Effort 5 min: Good Cry Reflex Irritability 5 min: Cough or Sneeze or Pulls Away Muscle Tone 5 min: Active Motion Color 5 min: Blue/Pale SCORE 5 MIN: 8 INFANT INFORMATION BABY A Gestational Age at Delivery: 38.5 Gestational Status: Early Term- 37- 38.6 Weeks Infant Outcome : Liveborn Condition : Stable Sex: Female IDENTIFICATION BABY A Infant Verification Date/Time: 02/19/2020 04:00 ID Band Number: [id number] Mother's Name Verified: Yes Infant RN Verifying : RDestin Butt, RN/ D. Cookie, RNC WEIGHT/LENGTH BABY A Infant Birthweight (gm): 2588 Infant Weight (lb): 5 Weight (oz): 11 Infant Length (in): 17.00 Infant Length (cm): 43.18 CORD INFORMATION BABY A No. Cord Vessels: 3 ASSESSMENT BABY A Infant Complications: None Physical Findings at Delivery: Within Normal Limits Skin to Skin: No Transferred To: Remains with Mother SIGNATURES Signature: with User ID: Dayo : with User ID: Dayo
[2020-02-19 06:31] LABS: URINE AMPHETAMINES SCREEN NEGATIVE; URINE BARBITURATES SCREEN NEGATIVE; URINE BENZODIAZEPINES SCREEN NEGATIVE; URINE COCAINE SCREEN NEGATIVE; URINE METHADONE SCREEN NEGATIVE; URINE PHENCYCLIDINE SCREEN NEGATIVE
[2020-02-19 06:38] LABS: URINE MARIJUANA (THC) SCREEN UNCONFIRMED POSITIVE
[2020-02-19] MEDS: IBUPROFEN 800 MG TABLET PO SCH ×3 (08:08→21:48)
[2020-02-19] MEDS ORDERED: SENNOSIDES/DOCUSATE 8.6-50 MG 1 EACH TABLET ONE (09:00)
[2020-02-19] MEDS ORDERED: PRENATAL VITAMIN W DHA CAPSULE PO ONE (09:00)
[2020-02-19] MEDS ORDERED: DOCUSATE SODIUM 100 MG CAPSULE ONE (09:00)
[2020-02-19] MEDS ORDERED: FAMOTIDINE 20 MG TABLET ONE (09:00)
[2020-02-19] MEDS ORDERED: FERROUS SULFATE 325 MG TABLET PO ONE (09:01)
[2020-02-19] MEDS: PRENATAL VITAMIN W DHA CAPSULE PO SCH (09:04)
[2020-02-19] MEDS: DOCUSATE SODIUM 100 MG CAPSULE PO SCH ×2 (09:04→17:16)
[2020-02-19] MEDS: FAMOTIDINE 20 MG TABLET PO SCH ×2 (09:05→21:48)
[2020-02-19] MEDS: SENNOSIDES/DOCUSATE 8.6-50 MG 1 EACH TABLET PO SCH (09:05)
[2020-02-19] MEDS: FERROUS SULFATE 325 MG TABLET PO SCH ×2 (09:05→17:16)
[2020-02-19] MEDS: ACETAMINOPHEN 325 MG TABLET PO PRN (17:20)
[2020-02-19] MEDS: BENZOCAINE/MENTHOL AEROSOL SPRAY 56 ML TOP PRN (17:21)
[2020-02-20] MEDS: IBUPROFEN 800 MG TABLET PO SCH ×3 (05:29→21:19)
[2020-02-20 08:05] LABS: HEMATOCRIT 31.6 % (36.0-47.0); HEMOGLOBIN 10.7 g/dL (12.0-15.5); MEAN CORPUSCULAR HEMOGLOBIN 31.5 pg (27.0-33.4); MEAN CORPUSCULAR HGB CONC 33.9 g/dL (32.0-36.0); MEAN CORPUSCULAR VOLUME 93 fl (80-97); PLATELET COUNT 198 10^3/uL (150-450); RED CELL DISTRIBUTION WIDTH 13.9 % (11.5-14.0); WHITE BLOOD COUNT 12.6 10^3/uL (4.0-10.5)
[2020-02-20] MEDS: ACETAMINOPHEN 325 MG TABLET PO PRN ×2 (08:43→17:48)
[2020-02-20] MEDS: DOCUSATE SODIUM 100 MG CAPSULE PO SCH ×2 (10:24→17:47)
[2020-02-20] MEDS: FAMOTIDINE 20 MG TABLET PO SCH ×2 (10:24→21:45)
[2020-02-20] MEDS: PRENATAL VITAMIN W DHA CAPSULE PO SCH (10:25)
[2020-02-20] MEDS: SENNOSIDES/DOCUSATE 8.6-50 MG 1 EACH TABLET PO SCH (10:25)
[2020-02-20] MEDS: FERROUS SULFATE 325 MG TABLET PO SCH ×2 (10:25→18:36)
--- NOTE | 2020-02-20 10:29 | PDOC PROGRESS REPORT ---
Subjective-OB Progress Note for:: 02/20/20 Subjective: reports bleeding slowing, pain controlled with current meds. denies needs Physical Exam (OB) Vital Signs: Temp Pulse Resp BP Pulse Ox 98.0 F 70 18 120/67 99 02/20/20 09:18 02/20/20 07:08 02/20/20 07:08 02/20/20 07:08 02/20/20 07:08 Intake & Output 02/19/20 02/20/20 02/21/20 06:59 06:59 06:59 Intake Total 400 Balance 400 Weight 67.132 kg - Maternal Morbidity 59. Maternal Morbidity (serious complications experinced by the mother associated with labor and delivery: None of the above - Abdomen Description: Soft Hernia Present: No Fundal Description: Firm Fundal Height: u/u - u/2 - Abdominal Distension: No distension Tenderness: Nontender - Extremities Lower extremities: Rashel's sign - neg Calf: Normal, Nontender Objective-Diagnostic Laboratory: 02/20/20 07:40 02/20/20 07:40 WBC 12.6 H RBC 3.40 L Hgb 10.7 L Hct 31.6 L MCV 93 MCH 31.5 MCHC 33.9 RDW 13.9 Plt Count 198 Assessment and Plan(PN) - Assessment and Plan (1) Normal vaginal delivery Is this a current diagnosis for this admission?: Yes (2) Encounter for care after unplanned out of hospital delivery Is this a current diagnosis for this admission?: Yes - Time Spent with Patient Time with patient: Less than 15 minutes - Disposition Anticipated Discharge Disposition: Home, Self Care Anticipated Discharge Timeframe: within 24 hours
[2020-02-20] MEDS: BENZOCAINE/MENTHOL AEROSOL SPRAY 56 ML TOP PRN (21:18)
[2020-02-21] MEDS: ACETAMINOPHEN 325 MG TABLET PO PRN ×3 (03:33→16:14)
[2020-02-21] MEDS: IBUPROFEN 800 MG TABLET PO SCH ×2 (05:30→13:38)
[2020-02-21 08:53] VITALS: BP 121/70
[2020-02-21] MEDS: PRENATAL VITAMIN W DHA CAPSULE PO SCH (09:33)
[2020-02-21] MEDS: FAMOTIDINE 20 MG TABLET PO SCH (09:33)
[2020-02-21] MEDS: SENNOSIDES/DOCUSATE 8.6-50 MG 1 EACH TABLET PO SCH (09:33)
[2020-02-21] MEDS: DOCUSATE SODIUM 100 MG CAPSULE PO SCH (09:33)
[2020-02-21] MEDS: FERROUS SULFATE 325 MG TABLET PO SCH (09:33)
--- NOTE | 2020-02-21 10:33 | PDOC DISCHARGE SUMMARY ---
Impression - Admit/DC Date/PCP Admission Date/Primary Care Provider: 02/19/20 03:41 LAWRENCE HUI MD Discharge Date: 02/21/20 - Discharge Diagnosis (1) Normal vaginal delivery Is this a current diagnosis for this admission?: Yes (2) Encounter for care after unplanned out of hospital delivery Is this a current diagnosis for this admission?: Yes - Additional Information Discharge Diet: Regular Discharge Activity: Balance Activity w/Rest, Pelvic Rest Referrals: LAWRENCE HUI MD [Primary Care Provider] - Prescriptions: Ibuprofen [Motrin 800 mg Tablet] 800 mg PO Q8HP PRN #60 tablet PRN Reason: Home Medications: Pnv 102/Iron/Folate 1/Dss/Dha [Vitafol Fe+ Docusate Combo Pck] 1 each PO DAILY 02/18/20 Ibuprofen [Motrin 800 mg Tablet] 800 mg PO Q8HP PRN #60 tablet 02/21/20 Hospital Course 59. Maternal Morbidity (serious complications experinced by the mother associated with labor and delivery: None of the above Results Laboratory Results: WBC 12.6 10^3/uL (4.0-10.5) H 02/20/20 07:40 RBC 3.40 10^6/uL (3.72-5.28) L 02/20/20 07:40 Hgb 10.7 g/dL (12.0-15.5) L 02/20/20 07:40 Hct 31.6 % (36.0-47.0) L 02/20/20 07:40 MCV 93 fl (80-97) 02/20/20 07:40 MCH 31.5 pg (27.0-33.4) 02/20/20 07:40 MCHC 33.9 g/dL (32.0-36.0) 02/20/20 07:40 RDW 13.9 % (11.5-14.0) 02/20/20 07:40 Plt Count 198 10^3/uL (150-450) 02/20/20 07:40 Lymph % (Auto) Not Reportable 02/19/20 05:21 [place] % (Auto) Not Reportable 02/19/20 05:21 Eos % (Auto) Not Reportable 02/19/20 05:21 Baso % (Auto) Not Reportable 02/19/20 05:21 Absolute Neuts (auto) Not Reportable 02/19/20 05:21 Absolute Lymphs (auto) Not Reportable 02/19/20 05:21 Absolute Monos (auto) Not Reportable 02/19/20 05:21 Absolute Eos (auto) Not Reportable 02/19/20 05:21 Absolute Basos (auto) Not Reportable 02/19/20 05:21 Total Counted 100 02/19/20 05:21 Seg Neutrophils % Not Reportable 02/19/20 05:21 Seg Neuts % (Manual) 87 % (42-78) H 02/19/20 05:21 Lymphocytes % (Manual) 10 % (13-45) L 02/19/20 05:21 Monocytes % (Manual) 3 % (3-13) 02/19/20 05:21 Eosinophils % (Manual) 0 % (0-6) 02/19/20 05:21 Basophils % (Manual) 0 % (0-2) 02/19/20 05:21 Abs Neuts (Manual) 18.9 10^3/uL (1.7-8.2) H 02/19/20 05:21 Abs Lymphs (Manual) 2.2 10^3/uL (0.5-4.7) 02/19/20 05:21 Abs Monocytes (Manual) 0.7 10^3/uL (0.1-1.4) 02/19/20 05:21 Absolute Eos (Manual) 0.0 10^3/uL (0.0-0.6) 02/19/20 05:21 Abs Basophils (Manual) 0.0 10^3/uL (0.0-0.2) 02/19/20 05:21 Platelet Comment ADEQUATE 02/19/20 05:21 RBC Morph Comment NORMO-CYTIC/CHROMIC 02/19/20 05:21 Urine Color YELLOW 02/19/20 06:00 Urine Appearance CLEAR 02/19/20 06:00 Urine pH 7.0 (5.0-9.0) 02/19/20 06:00 Ur Specific [place] 1.005 02/19/20 06:00 Urine Protein 30 mg/dL (NEGATIVE) H 02/19/20 06:00 Urine Glucose (UA) NEGATIVE mg/dL (NEGATIVE) 02/19/20 06:00 Urine Ketones NEGATIVE mg/dL (NEGATIVE) 02/19/20 06:00 Urine Blood LARGE (NEGATIVE) H 02/19/20 06:00 Urine Nitrite NEGATIVE (NEGATIVE) 02/19/20 06:00 Urine Bilirubin NEGATIVE (NEGATIVE) 02/19/20 06:00 Urine Urobilinogen NEGATIVE mg/dL (<2.0) 02/19/20 06:00 Ur Leukocyte Esterase TRACE (NEGATIVE) H 02/19/20 06:00 Urine Ascorbic Acid NEGATIVE (NEGATIVE) 02/19/20 06:00 Urine Opiates Screen UNCONFIRMED POSITIVE 02/19/20 06:00 Urine Methadone Screen NEGATIVE 02/19/20 06:00 Ur Barbiturates Screen NEGATIVE 02/19/20 06:00 Ur Phencyclidine Scrn NEGATIVE 02/19/20 06:00 Ur Amphetamines Screen NEGATIVE 02/19/20 06:00 U Benzodiazepines Scrn NEGATIVE 02/19/20 06:00 Urine Cocaine Screen NEGATIVE 02/19/20 06:00 U Marijuana (THC) Screen UNCONFIRMED POSITIVE 02/19/20 06:00 RPR NONREACTIVE (NONREACTIVE) 02/19/20 05:21 Blood Type A POSITIVE 02/19/20 05:21 Antibody Screen NEGATIVE 02/19/20 05:21 Plan Plan of Treatment: follow up in 4 weeks at [facility] for post check
== END 2020-02-21 19:13 | disposition home or self-care (01) | DRG 776 ==
LOC: LR 03:41 → 2S 09:50
PROVIDERS: ADMIT Obstetrics & Gynecology; ATTEND Obstetrics & Gynecology
PROC: 0HQ9XZZ Repair Perineum Skin, External Approach (ICD-10-PCS; principal; 2020-02-19)
DX: O70.0 First degree perineal laceration during delivery (principal); Z03.818 Encounter for observation for suspected exposure to other biological agents ruled out; Z3A.38 38 weeks gestation of pregnancy
CPT/HCPCS: 36415; 59414; 80307; 80349; 80361; 81005; 85025; 85027; 86592; 86850; 86900; 86901; 88307; G0480; J2405; J2590; J3490